=== PATIENT | female | born 1975 | race American Indian/Alaskan Native ===

== ENCOUNTER 2017-07-25 09:38 | Emergency (ER) | payer MEDICARE, OTHER ==
[2017-07-25 09:38] VITALS: BMI 34.1
[2017-07-25 09:49] VITALS: PULSE 74; RESP 18
--- NOTE | 2017-07-25 10:40 | C.PDOC ---
History Of Present Illness Patient is a 41 year old female presents to ED for evaluation of lower abdominal cramping for the last few days. Patient states that her menstrual period has been delayed by a week now, and is concerned for possible . Notes that home test were negative. Otherwise, denies n/v/d, fever, chills, back pain, or urinary symptoms. Time Seen by Provider: 07/25/17 10:12 Chief Complaint (Nursing): Abdominal Pain History Per: Patient History/Exam Limitations: no limitations Onset/Duration Of Symptoms: Days Current Symptoms Are (Timing): Still Present Location Of Pain/Discomfort: Suprapubic Radiation Of Pain To:: None Quality Of Discomfort: Cramping Associated Symptoms: denies: Loss Of Appetite, Back Pain, Chest Pain, Constipation, Urinary Symptoms Exacerbating Factors: None Alleviating Factors: None Recent travel outside of the [place]: No Additional History Per: Patient Abnormal Vaginal Bleeding: No Past Medical History Reviewed: Historical Data, Nursing Documentation, Vital Signs Vital Signs: Last Vital Signs Temp 98 F 07/25/17 13:43 Pulse 74 07/25/17 13:43 Resp 18 07/25/17 13:43 BP 126/88 07/25/17 13:43 Pulse Ox 99 07/25/17 13:43 - Medical History PMH: Anxiety, Depression, HTN, Hyperthyroidism, Post Traumatic Stress Disorder Denies: Kidney Stones Surgical History: Family History: States: Unknown Family Hx - Social History Hx Tobacco Use: No Hx Alcohol Use: No Hx Substance Use: No - Immunization History Hx Tetanus Toxoid Vaccination: No Hx Influenza Vaccination: No Hx Pneumococcal Vaccination: No Review Of Systems Except As Marked, All Systems Reviewed And Found Negative. Constitutional: Negative for: Fever, Chills Gastrointestinal: Positive for: Abdominal Pain. Negative for: Nausea, Vomiting , Diarrhea, Constipation Genitourinary: Negative for: Dysuria, Frequency, Hematuria, Vaginal Discharge Musculoskeletal: Negative for: Back Pain Physical Exam - Physical Exam Appears: Non-toxic, No Acute Distress Skin: Normal Color, Warm, Dry Head: Atraumatic, Normacephalic Eye(s): bilateral: Normal Inspection, EOMI Oral Mucosa: Moist Neck: Normal ROM, Supple Chest: Symmetrical Cardiovascular: Rhythm Regular, No Murmur Respiratory: Normal Breath Sounds, No Rales, No Rhonchi, No Wheezing Gastrointestinal/Abdominal: Soft, Tenderness (mild suprapubic), No Distention, No Guarding, No Rebound Back: No CVA Tenderness Extremity: Normal ROM, No Pedal Edema Neurological/Psych: Oriented x3, Normal Speech, Normal Cognition ED Course And Treatment - Laboratory Results Result Diagrams: 07/25/17 11:32 07/25/17 11:32 O2 Sat by Pulse Oximetry: 100 (RA) Pulse Ox Interpretation: Normal - CT Scan/US Pelvic US Other Rad Studies (CT/US): Read By Radiologist, Radiology Report Reviewed CT/US Interpretation: Accession No. : [id number]. Patient Name / ID : MAC COUGHLIN / [id number]. Exam Date : 07/25/2017 12:11:02 ( Approved ). Study Comment : Sex / Age : F / [id number]. Creator : James Petty MD. Dictator : James Petty MD. Lusterer : Vulcanized Fiber Unit Operator : James Petty MD. Approver2 : Report Date : 07/25/2017 12:47:57. My Comment : . HISTORY: pelvic cramps. COMPARISON: None available. TECHNIQUE: Transvaginal. FINDINGS: UTERUS: Measures 9.3 x 4.9 x 5.8 cm. No fibroid or other mass lesion seen. ENDOMETRIUM: Measures 8 mm in diameter. Unremarkable. CERVIX: No cervical abnormality identified. RIGHT OVARY: Measures 4.2 x 1.8 x 2.8 cm. No solid mass. Normal flow. LEFT OVARY: Measures 3.8 x 2.2 x 3.4 cm. No solid mass. Normal flow. Simple cyst, 2.1 cm, presumed physiologic. FREE FLUID: No significant free fluid noted. OTHER FINDINGS: None. IMPRESSION: Unremarkable pelvic ultrasound. Progress Note: labs ordered and reviewed. test is negative. Pelvic US - negative. On reassessment, patient is resting comfortably, abdomen remains soft. Patient feels comfortable going home. Patient will be discharged home with instructions to follow up with PMD in 1-2 days for further evaluation. Disposition - Disposition Disposition: HOME/ ROUTINE Disposition Time: 13:34 Condition: STABLE Additional Instructions: Follow up with PMD and OBGYN within 1-2 days. Return to ED if feel worse. Prescriptions: Ibuprofen [Motrin Tab] 600 mg PO Q8 #30 tab Instructions: [facility] (ED) Forms: [employer] (Japanese) - Clinical Impression Clinical Impression: Pelvic cramping - PA / RADIO TESTER / Resident Statement MD/DO has reviewed & agrees with the documentation as recorded. - Scribe Statement The provider has reviewed the documentation as recorded by the José Miguelibvincenzo Bonds All medical record entries made by the Steffen were at my direction and personally dictated by me. I have reviewed the chart and agree that the record accurately reflects my personal performance of the history, physical exam, medical decision making, and the department course for this patient. I have also personally directed, reviewed, and agree with the discharge instructions and disposition.
[2017-07-25 10:43] LABS: RBC URINE 3 /hpf (0-3); URINE BACTERIA RARE (<OCC); URINE BILIRUBIN NEGATIVE (NEGATIVE); URINE BLOOD NEGATIVE (NEGATIVE); URINE COLOR Yellow (YELLOW); URINE GLUCOSE (UA) NORMAL (Normal); URINE KETONE TRACE mg/dL (NEGATIVE); URINE LEUKOCYTE ESTERASE NEG Leu/uL (Negative); URINE PROTEIN 1+ mg/dL (NEGATIVE); WBC URINE < 1 /hpf (0-5)
[2017-07-25 11:43] LABS: BASO # 0.1 K/uL (0.0-0.2); BASO % 2.1 % (0.0-2.0); EOS % 0.9 % (0.0-4.0); HEMATOCRIT 36.2 % (34.0-47.0); LYMPH # 1.7 K/uL (1.0-4.3); LYMPH % 34.9 % (20.0-40.0); MEAN CELL VOLUME 81.2 fL (81.0-99.0); MEAN CORPUSCULAR HEMOGLOBIN 26.6 pg (27.0-31.0); MEAN CORPUSCULAR HGB CONC 32.8 g/dL (33.0-37.0); MEAN PLATELET VOLUME 8.6 fL (7.2-11.7); MONO # 0.4 K/uL (0.0-0.8); MONO % 8.2 % (0.0-10.0); NRBC % 0.1 % (0.0-2.0); RED CELL DISTRIBUTION WIDTH 15.6 % (11.5-14.5)
[2017-07-25 11:56] LABS: CHLORIDE 104 mmol/L (98-107)
[2017-07-25 11:57] LABS: POTASSIUM 3.6 mmol/L (3.6-5.2); SODIUM 137 mmol/L (132-148)
[2017-07-25 11:59] LABS: ALKALINE PHOSPHATASE 93 U/L (38-126); AST/SGOT 19 U/L (14-36); BILIRUBIN,TOTAL 0.4 mg/dL (0.2-1.3); BLOOD UREA NITROGEN 12 mg/dL (7-17); CARBON DIOXIDE 27 mmol/L (22-30); GFR AFRICAN-AMERICAN > 60; TOTAL PROTEIN 8.4 g/dL (6.3-8.3)
[2017-07-25 12:00] LABS: ALT/SGPT 24 U/L (9-52); CALCIUM 8.9 mg/dl (8.6-10.4); GLUCOSE,RANDOM 88 mg/dL (65-105)
--- NOTE | 2017-07-25 12:49 | US ---
HISTORY: pelvic cramps COMPARISON: None available. TECHNIQUE: Transvaginal FINDINGS: UTERUS: Measures 9.3 x 4.9 x 5.8 cm. No fibroid or other mass lesion seen. ENDOMETRIUM: Measures 8 mm in diameter. Unremarkable. CERVIX: No cervical abnormality identified. RIGHT OVARY: Measures 4.2 x 1.8 x 2.8 cm. No solid mass. Normal flow. LEFT OVARY: Measures 3.8 x 2.2 x 3.4 cm. No solid mass. Normal flow. Simple cyst, 2.1 cm, presumed physiologic. FREE FLUID: No significant free fluid noted. OTHER FINDINGS: None. IMPRESSION: Unremarkable pelvic ultrasound.
[2017-07-25 13:44] VITALS: BP 126/88; TEMP 98
[2017-07-25 17:20] VITALS: O2SAT 100
== END 2017-07-25 13:40 | disposition home or self-care (01) ==
LOC: C.ER 09:38
DX: R10.2 Pelvic and perineal pain (principal)